=== PATIENT | female | born 1950 | race African-American/Black ===

== ENCOUNTER 2018-12-22 23:09 | Inpatient (IN) | payer MEDICARE ==
[~2018-12-22] VITALS: Ht 170.2 cm; Wt 103.2 kg
[2018-12-22] MEDS ORDERED: VALS160T28 MT (23:47)
[2018-12-22] MEDS ORDERED: DILT120T2 MT (23:47)
[2018-12-22] MEDS ORDERED: CYCL30DR EACHEYE (23:47)
[2018-12-22] MEDS ORDERED: DONE10TA11 MT (23:47)
[2018-12-22] MEDS ORDERED: FURO-151 MT (23:47)
[2018-12-22] MEDS ORDERED: POTA20TA82 MT (23:47)
[2018-12-22] MEDS ORDERED: MULT-1047 PO (23:47)
[2018-12-23 00:42] LABS: CLARITY URINE CLOUDY (CLEAR); COLOR URINE YELLOW (YELLOW); KETONES URINE NEGATIVE (NEGATIVE); LEUKOCYTE ESTERASE URINE 2+ (NEGATIVE); NITRITE URINE NEGATIVE (NEGATIVE); OCCULT BLOOD URINE NEGATIVE (NEGATIVE); PROTEIN URINE NEGATIVE (NEGATIVE); SPECIFIC GRAVITY URINE 1.012 (1.005-1.030); UROBILINOGEN URINE 0.2 E.U./dL (0.2-1.0)
[2018-12-23] MEDS ORDERED: SODIUM CHLORIDE 0.9% 1,000 ML IV ONE (02:12)
[2018-12-23 02:31] LABS: BASOPHILS % 0.9 % (0.0-2.0); EOSINOPHILS % 0.3 % (0.0-5.0); HEMATOCRIT. 50.3 % (36.0-48.0); HEMOGLOBIN. 17.3 g/dL (12.0-16.0); LYMPHOCYTES % 36.5 % (20.0-50.0); MEAN CORPUSCULAR HEMOGLOBIN 30.8 pg (28.0-32.0); MEAN CORPUSCULAR VOLUME 89.8 fL (81.0-99.0); MEAN PLATELET VOLUME 9.6 fl (7.4-10.4); MONOCYTES % 7.5 % (2.0-8.0); NEUTROPHILS % 54.8 % (40.0-76.0); PLATELET 118 x1000/uL (130-400); RED BLOOD CELL COUNT 5.61 mill/uL (4.2-5.4); RED CELL DISTRIBUTION WIDTH 13.8 % (11.6-14.6)
[2018-12-23 02:35] LABS: CHLORIDE 105 mEq/L (98-107)
[2018-12-23] MEDS ORDERED: MORPHINE SULFATE 4 MG/ML CPJ (NOT FOR IM USE) IV ONE (04:15)
[2018-12-23] MEDS ORDERED: ONDANSETRON HCL 4MG/2ML INJ IV ONE (04:30)
[2018-12-23] MEDS ORDERED: ZOLPIDEM TARTRATE 5MG TABLET PO PRN (07:15)
[2018-12-23] MEDS ORDERED: ACETAMINOPHEN 325MG TABLET PO PRN (07:15)
[2018-12-23] MEDS ORDERED: LEVOFLOXACIN 500MG PREMIX 100 ML IV SCH (07:15)
[2018-12-23] MEDS ORDERED: MAGNESIUM/ALUMINUM HYDROXIDE/SIMETHICONE 30ML UDC PO PRN (07:15)
[2018-12-23] MEDS ORDERED: TRAMADOL 50MG TABLET PO PRN (07:15)
[2018-12-23] MEDS ORDERED: IPRATROPIUM/ALBUTEROL 0.5-3(2.5)MG/3ML NEB INH PRN (07:15)
[2018-12-23] MEDS ORDERED: ONDANSETRON HCL 4MG/2ML INJ IV PRN (07:15)
[2018-12-23] MEDS ORDERED: ENOXAPARIN 40MG/0.4ML SYR SUBCUT SCH (07:15)
[2018-12-23] MEDS ORDERED: CLONIDINE 0.1MG TABLET PO PRN (07:15)
[2018-12-23] MEDS ORDERED: GUAIFENESIN 200MG/10ML SUGAR FREE UDC PO PRN (07:15)
[2018-12-23] MEDS ORDERED: NITROGLYCERIN 0.4MG TABLET SL SL PRN (07:15)
[2018-12-23] MEDS ORDERED: KETOROLAC 15MG/ML VIAL IV PRN (07:15)
[2018-12-23 07:57] LABS: T4 FREE 1.25 ng/dL (0.76-1.46)
[2018-12-23] MEDS ORDERED: LEVOFLOXACIN 500MG PREMIX 100 ML IV ONE (08:44)
[2018-12-23 10:00] VITALS: BP 139/53
[2018-12-23] MEDS: ASCORBIC ACID 500 MG TABLET PO SCH ×2 (10:08→21:07)
[2018-12-23] MEDS: ASPIRIN 325MG EC TABLET PO SCH (10:08)
[2018-12-23] MEDS: FAMOTIDINE 20MG TABLET PO SCH ×2 (10:09→21:07)
[2018-12-23] MEDS ORDERED: CEFTRIAXONE 1 G PREMIX 50 ML IV SCH (11:00)
[2018-12-23 16:00] VITALS: BP 139/53
[2018-12-23 16:35] LABS: CREATINE KINASE 72 IU/L (26-192)
[2018-12-23 16:37] LABS: CREATINE KINASE MB FRACTION 1.8 ng/mL (0.5-3.6)
[2018-12-23] MEDS ORDERED: PNEUMOCOCCAL 23-VAL P-SAC VAC 0.5 ML IM ONE (18:45)
[2018-12-23 20:00] VITALS: BP 145/58
[2018-12-23] MEDS: ATORVASTATIN CALCIUM 20MG TABLET PO SCH (21:07)
[2018-12-23] MEDS: ENOXAPARIN 30MG/0.3ML SYR SUBCUT SCH (21:08)
[2018-12-24] VITALS: BP 141/63
[2018-12-24 00:44] LABS: CREATINE KINASE 82 IU/L (26-192); CREATINE KINASE MB FRACTION 1.9 ng/mL (0.5-3.6)
[2018-12-24] MEDS: DOCUSATE SODIUM 100MG CAPSULE PO PRN (03:34)
[2018-12-24 04:00] VITALS: BP 137/65
[2018-12-24 08:00] VITALS: BP 150/79
[2018-12-24] MEDS: ASPIRIN 325MG EC TABLET PO SCH (08:41)
[2018-12-24] MEDS: ASCORBIC ACID 500 MG TABLET PO SCH ×2 (08:41→20:56)
[2018-12-24] MEDS: LEVOFLOXACIN 500MG PREMIX 100 ML IV SCH (08:42)
[2018-12-24] MEDS: FAMOTIDINE 20MG TABLET PO SCH ×2 (10:46→20:55)
[2018-12-24] MEDS: ENOXAPARIN 30MG/0.3ML SYR SUBCUT SCH ×3 (10:46→21:00)
[2018-12-24 12:00] VITALS: BP 160/73
[2018-12-24] MEDS ORDERED: AMLODIPINE 5MG TABLET PO SCH (13:30)
[2018-12-24 16:00] VITALS: BP 156/73
[2018-12-24] MEDS: CEFTRIAXONE 1 G PREMIX 50 ML IV SCH (17:08)
[2018-12-24] MEDS: HALOPERIDOL LACTATE 5MG/ML VIAL IM PRN (19:10)
[2018-12-24 20:00] VITALS: BP 139/76
[2018-12-24] MEDS: ATORVASTATIN CALCIUM 20MG TABLET PO SCH (20:55)
[2018-12-25] VITALS (8 sets, daily range): BP systolic 110–173; BP diastolic 46–86
[2018-12-25 06:19] LABS: CHLORIDE 107 mEq/L (98-107)
[2018-12-25 06:29] LABS: BASOPHILS % 0.5 % (0.0-2.0); EOSINOPHILS % 2.2 % (0.0-5.0); HEMATOCRIT. 43.4 % (36.0-48.0); HEMOGLOBIN. 14.9 g/dL (12.0-16.0); LYMPHOCYTES % 53.9 % (20.0-50.0); MEAN CORPUSCULAR VOLUME 90.2 fL (81.0-99.0); MEAN PLATELET VOLUME 10.2 fl (7.4-10.4); MONOCYTES % 11.3 % (2.0-8.0); NEUTROPHILS % 32.1 % (40.0-76.0); PLATELET 102 x1000/uL (130-400); RED BLOOD CELL COUNT 4.82 mill/uL (4.2-5.4); RED CELL DISTRIBUTION WIDTH 13.8 % (11.6-14.6)
[2018-12-25] MEDS: HALOPERIDOL LACTATE 5MG/ML VIAL IM PRN ×2 (08:19→20:44)
[2018-12-25] MEDS: ASPIRIN 325MG EC TABLET PO SCH (08:52)
[2018-12-25] MEDS: AMLODIPINE 5MG TABLET PO SCH (08:52)
[2018-12-25] MEDS: FAMOTIDINE 20MG TABLET PO SCH ×2 (08:52→20:43)
[2018-12-25] MEDS: ASCORBIC ACID 500 MG TABLET PO SCH ×2 (08:52→20:43)
[2018-12-25] MEDS: LEVOFLOXACIN 500MG PREMIX 100 ML IV SCH (08:53)
[2018-12-25] MEDS: ENOXAPARIN 30MG/0.3ML SYR SUBCUT SCH ×2 (09:00→20:44)
[2018-12-25] MEDS: CEFTRIAXONE 1 G PREMIX 50 ML IV SCH (11:44)
[2018-12-25] MEDS: MAGNESIUM OXIDE 400MG TABLET PO SCH (15:33)
[2018-12-25] MEDS: ATORVASTATIN CALCIUM 20MG TABLET PO SCH (20:44)
[2018-12-26] VITALS: BP 149/64
[2018-12-26 04:00] VITALS: BP 145/67
[2018-12-26 08:00] VITALS: BP 119/74
[2018-12-26] MEDS: ENOXAPARIN 30MG/0.3ML SYR SUBCUT SCH (10:10)
[2018-12-26] MEDS: DOCUSATE SODIUM 100MG CAPSULE PO PRN (10:10)
[2018-12-26] MEDS: FAMOTIDINE 20MG TABLET PO SCH (10:10)
[2018-12-26] MEDS: AMLODIPINE 5MG TABLET PO SCH (10:10)
[2018-12-26] MEDS: MAGNESIUM OXIDE 400MG TABLET PO SCH (10:10)
[2018-12-26] MEDS: ASPIRIN 325MG EC TABLET PO SCH (10:10)
[2018-12-26] MEDS: ASCORBIC ACID 500 MG TABLET PO SCH (10:10)
[2018-12-26] MEDS ORDERED: LEVOFLOXACIN 500MG TABLET PO SCH (11:00)
[2018-12-26 12:00] VITALS: BP 127/56
[2018-12-26 13:03] LABS: BASOPHILS % 0.6 % (0.0-2.0); EOSINOPHILS % 1.7 % (0.0-5.0); HEMATOCRIT. 43.6 % (36.0-48.0); HEMOGLOBIN. 14.9 g/dL (12.0-16.0); LYMPHOCYTES % 51.2 % (20.0-50.0); MEAN CORPUSCULAR VOLUME 90.4 fL (81.0-99.0); MEAN PLATELET VOLUME 9.9 fl (7.4-10.4); MONOCYTES % 13.7 % (2.0-8.0); NEUTROPHILS % 32.8 % (40.0-76.0); PLATELET 95 x1000/uL (130-400); RED BLOOD CELL COUNT 4.82 mill/uL (4.2-5.4); RED CELL DISTRIBUTION WIDTH 13.6 % (11.6-14.6)
[2018-12-26 13:21] LABS: CHLORIDE 109 mEq/L (98-107)
[2018-12-26] MEDS: CEFTRIAXONE 1 G PREMIX 50 ML IV SCH (13:32)
[2018-12-26 14:53] VITALS: BP 156/73
== END 2018-12-26 15:30 | DRG 312 ==
LOC: ER 23:09 → 5WST 12-23 05:23 → EDBEDREQTM 12-23 05:28 → EDBEDREQ 12-23 05:28 → SUPCPDRO 12-23 07:12 → ENRESERV 12-23 07:51
PROVIDERS: ADMIT Internal Medicine; ATTEND Internal Medicine
DX: R55 Syncope and collapse (principal); N39.0 Urinary tract infection, site not specified; R00.1 Bradycardia, unspecified; E83.52 Hypercalcemia; E78.5 Hyperlipidemia, unspecified; F03.90 Unspecified dementia, unspecified severity, without behavioral disturbance, psychotic disturbance, mood disturbance, and anxiety; I11.0 Hypertensive heart disease with heart failure; I50.9 Heart failure, unspecified; I45.10 Unspecified right bundle-branch block; E83.42 Hypomagnesemia; Z79.899 Other long term (current) drug therapy; Z91.81 History of falling; Z88.2 Allergy status to sulfonamides; Z68.35 Body mass index [BMI] 35.0-35.9, adult
CPT/HCPCS: 36415; 70551; 71045; 80048; 80061; 82550; 82553; 82607; 82746; 83036; 83540; 83550; 83605; 83735; 84439; 84443; 84484; 85379; 90732; 93005; 93306; 93970; 97162; 97166; 99285; J0696; J1630; J1650; J1956; J2270; J2405; J7030